=== PATIENT | female | born 1960 | race Caucasian/White ===

== ENCOUNTER 2019-09-08 08:15 | Inpatient (IN) ==
--- NOTE | 2019-08-25 16:40 | PAT Medication Instructions ---
Medication Instructions Date of Service August 25, 2019 Home Medications aspirin 81 mg PO QAM cyanocobalamin (vitamin B-12) [Vitamin B-12] 1,000 mcg PO QAM diclofenac sodium 2 g TOPICAL QAM folic acid 800 mcg PO QAM omega 7-szd-xbx-fish oil [Fish Oil] 1 cap PO BID pyridoxine (vitamin B6) [Vitamin B-6] 100 mg PO QAM STOP taking 2 weeks before surgery (or as soon as possible if surgery is within 2 weeks) omega 4-psi-xdd-fish oil [Fish Oil] 1 cap PO BID STOP taking 24 hours before surgery diclofenac sodium 2 g TOPICAL QAM DO NOT take the morning of surgery cyanocobalamin (vitamin B-12) [Vitamin B-12] 1,000 mcg PO QAM folic acid 800 mcg PO QAM pyridoxine (vitamin B6) [Vitamin B-6] 100 mg PO QAM Other Notes If you have any questions please call us at [phone] or [phone] or [phone] or [phone]
--- NOTE | 2019-08-26 12:57 | Anesthesiology Consultation ---
Date of Service August 26, 2019 Assessment & Plan (1) Encounter for pre-operative examination: - Awaiting review preop testing (labs, EKG, CXR). - Awaiting surgeon-ordered PCP preop evaluation scheduled 08/30 (Dr. Kay). Chart Review Chart Review: Patient seen in Pre Admission Testing Teaching & Discussion Pre-Anesthesia Teaching/Discussion Notes: Instructed NPO after midnight before surgery,except medications with 15 cc of water. Medication instructions provided according to the PAT guidelines. History Surgery Operation Date: 09/08/19 10:00 Proposed Procedures p Left Total Knee Arthroplasty - rGant Stubbs MD Height/Weight Height: 5 ft 7 in Weight: 110.8 kg Allergies Allergy/AdvReac Type Severity Reaction Status Date / Time No Known Allergies Allergy Verified 08/24/19 09:16 Medications Home Medications Medication Instructions Recorded Confirmed Last Taken aspirin 81 mg PO QAM 08/24/19 08/24/19 Unknown cyanocobalamin (vitamin B-12) 1,000 mcg PO QAM 08/24/19 08/24/19 Unknown [Vitamin B-12] diclofenac sodium 2 g TOPICAL QAM 08/24/19 08/24/19 Unknown folic acid 800 mcg PO QAM 08/24/19 08/24/19 Unknown omega 0-ghs-deu-fish oil [Fish Oil] 1 cap PO BID 08/24/19 08/24/19 Unknown pyridoxine (vitamin B6) [Vitamin 100 mg PO QAM 08/24/19 08/24/19 Unknown B-6] Past Medical History Medical History DVT (deep venous thrombosis) LLE (2+ years ago)- AC x 6 months (AC discontinued 2 years ago) Hyperlipidemia Exercise / Class Metabolic Activity III < 4 Walking/Shop/Light housework (uses cane PRN) Past Surgical History Surgical History History of open reduction and internal fixation (ORIF) procedure LEFT HIP AND HARDWARE REMOVED History of tonsillectomy and adenoidectomy Hx of arthroscopy of left knee Hx of colonoscopy Hx of laparoscopy REMOVED LEFT OVARY DUE TO CYST Hx of left knee surgery KNEE CAP SURGERY Hx of tubal ligation Past Anesthesia History No Hx of Anesthesia Complications and No Family Hx of Anesthesia Complications History of PONV No Hx of PONV and Hx of Motion Sickness (remote hx) Social History Smoking Status: Never smoker Do You Dip or Chew Tobacco: No Hx Alcohol Use: Yes Alcohol type: beer and wine alcohol intake frequency: holidays/special occasions only Hx Substance Use: No substance use type: does not use Review of Systems Patient denies chest pain, shortness of breath, reflux, cough, wheezing, palpitations. Physical Exam Vital Signs VITALS BP 143/85 (Patient advised to followup with PCP regarding elevated BP) P 58 TEMP 98.2 SP02 94%RA RESP 18 PHYSICAL Full neck and c-spine range of motion. Full TMJ range of motion. TMD 3.5 finger breaths Mallampati Score 2 Dentition: missing sides/molars Lungs: clear throughout to auscultation Cardiac: regular rate and rhythm, no murmurs noted Spine: normal Carotid arteries: negative bruit Extremities: no edema Thick neck
--- NOTE | 2019-08-26 13:53 | XRay Report ---
XR chest Pre-admission PA/Lat HISTORY: 59 years-old Female PAT preoperative exam. No acute chest complaints COMPARISON: None available TECHNIQUE: PA and lateral views of the chest FINDINGS: Cardiac silhouette is mildly enlarged. No pneumothorax, pleural effusion, focal airspace consolidatio n or overt pulmonary edema. Degenerative changes of the shoulders and spine. IMPRESSION: Cardiomegaly without acute process. The above report was generated using voice recognition software. It may contain grammatical, syntax o r spelling errors. Electronically signed by: Pablo Barbosa M.D. 08/26/2019 1:52 PM
[2019-08-26 15:32] LABS: Basophils # (auto) 0.05 K/uL (0-0.2); Basophils % (auto) 0.7 %; Eosinophils % (auto) 1.3 %; Hematocrit (blood only) 42.2 % (37-47); Immature Granulocytes # (auto) 0.02 K/uL (0.00-0.02); Immature Granulocytes % (auto) 0.3 %; Lymphocytes # (auto) 2.09 K/uL (1.2-3.4); Lymphocytes % (auto) 27.8 %; Mean Corpuscular Hemoglobin 30.2 pg (25-34); Mean Corpuscular Hgb Conc 33.2 g/dL (32-36); Mean Corpuscular Volume 90.9 fL (80-100); Monocytes # (auto) 0.68 K/uL (0.11-0.59); Monocytes % (auto) 9.1 %; Neutrophils # (auto) 4.57 K/uL (1.4-6.5); Neutrophils % (auto) 60.8 %; Platelet Count 175 K/uL (130-400); RDW Coefficient of Variation 13.9 % (11.5-14.5); RDW Standard Deviation 46.1 fL (36.4-46.3); Red Blood Count 4.64 M/uL (4.2-5.4); White Blood Count 7.51 K/uL (4.8-10.8)
[2019-08-26 16:03] LABS: Partial Thromboplastin Time 25.9 Seconds (21.0-31.0); Prothrombin Time 10.3 Seconds (9.0-12.0)
[2019-08-26 16:15] LABS: Appearance Urine Clear (Clear); Bilirubin Urine Negative (Negative); Blood Urine Negative (Negative); Color Urine Yellow; Glucose Urine UA Negative (Negative); Ketones Urine Negative (Negative); Leukocyte Esterase Urine Negative (Negative); Nitrite Urine Negative (Negative); Protein Urine Negative (Negative); Specific Gravity Urine 1.015 (1.000-1.030); Urobilinogen Urine Negative (Negative)
[2019-08-26 16:36] LABS: Albumin Level 3.5 gm/dl (3.4-5.0); BUN Creatinine Ratio 19.7 (10-20); Creatinine Clr Calc Pharmacy 106.3 ml/min; Est GFR (African American) 103.5; Est GFR (Non-African American) 89.3; Potassium 4.2 mmol/L (3.5-5.1)
[2019-08-27 07:04] LABS: Estimated Average Glucose 108 mg/dl; Hemoglobin A1C 5.4 % (4.5-5.6)
--- NOTE | 2019-09-02 11:19 | History & Physical Report ---
Date of Service September 02, 2019 Assessment & Plan (1) Primary osteoarthritis of left knee: Patient has severe osteoarthritic change of her left knee. She has failed conservative measures as above. Treatment options were discussed. Risks, benefits and alternatives to surgery including but not limited to infection, DVT, pain, stiffness, need for revision surgery, damage to blood vessels, damage to nerves, PE, , were discussed with the patient and they wish to proceed. Plan will be for left total knee arthroplasty. Will plan on Xarelto for DVT prophylaxis given her history of DVT. Will plan on home health PT upon discharge. Surgery scheduled for 09/08/19 at [facility]. All questions answered. She will follow up post operatively. History of Present Illness Primary Care Provider: Kenya Marcos DO 59 year old female with PMHx significant for high cholesterol and history of DVT in left leg presents with ongoing left knee pain. It is starting to affect her daily activities and is unable to do the things she would like to do. She has failed conservative measures including injections and antiinflammatories. She would like to proceed with left knee replacement. Patient denies headaches, sweats, fevers, chills, double vision, blurred vision, cough, sore throat, dysphagia, chest pain, sob, wheezing, n/v/d/c, numbness, tingling, fatigue, urinary symptoms, mood disorders. ROS positive for bilateral pain and stiffness. Allergies Allergy/AdvReac Type Severity Reaction Status Date / Time No Known Allergies Allergy Verified 08/24/19 09:16 Home Medications Home Medications Medication Instructions Recorded Confirmed Type aspirin 81 mg PO QAM 08/24/19 08/24/19 History cyanocobalamin (vitamin B-12) 1,000 mcg PO QAM 08/24/19 08/24/19 History [Vitamin B-12] diclofenac sodium 2 g TOPICAL QAM 08/24/19 08/24/19 History folic acid 800 mcg PO QAM 08/24/19 08/24/19 History omega 5-hjz-bts-fish oil [Fish Oil] 1 cap PO BID 08/24/19 08/24/19 History pyridoxine (vitamin B6) [Vitamin 100 mg PO QAM 08/24/19 08/24/19 History B-6] Past Med/Surg History Medical History DVT (deep venous thrombosis) LLE (2+ years ago)- AC x 6 months (AC discontinued 2 years ago) Hyperlipidemia Surgical History History of open reduction and internal fixation (ORIF) procedure LEFT HIP AND HARDWARE REMOVED History of tonsillectomy and adenoidectomy Hx of arthroscopy of left knee Hx of colonoscopy Hx of laparoscopy REMOVED LEFT OVARY DUE TO CYST Hx of left knee surgery KNEE CAP SURGERY Hx of tubal ligation Social History Preferred Language: Malay Communication Ability: Effective 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 Beliefs That Will Affect Care: None Current Living Situation: Spouse Other Information That Helps Us Care for You: No Feels Safe at Home: Yes Safety Concerns: Feels Safe At This Time Smoking Status: Never smoker Do You Dip or Chew Tobacco: No ; Second Hand Exposure: No ; Tobacco Cessation Education Requested by Patient: No Hx Alcohol Use: Yes Alcohol type: beer and wine Hx Substance Use: No Review of Systems All systems reviewed & are unremarkable except as noted in HPI & below Physical Exam Constitutional: well developed and well nourished; no acute distress Eyes: PERRL, conjunctivae normal, anicteric sclerae ENMT: external ear and nose normal, oropharynx normal Neck: trachea midline, no thyromegaly Respiratory: normal respiratory effort, lungs clear to auscultation Cardiovascular: RRR, no murmur, no edema Musculoskeletal: Lef tknee: ROM 5-100 degrees with crepitus. Tenderness medial joint line, mild effusion. Positive Triston's, stable to valgus and varus stress Skin: no rashes, warm and dry Neurologic: patellar DTR's 2+ bilat, sensation intact Psychiatric: A+Ox3, euthymic affect Results & Data Laboratory Results Lab Results 08/26/19 08/26/19 08/26/19 Range/Units 13:22 13:22 13:22 WBC 7.51 (4.8-10.8) K/uL RBC 4.64 (4.2-5.4) M/uL Hgb 14.0 (12.0-16.0) g/dL Hct 42.2 (37-47) % MCV 90.9 (80-100) fL MCH 30.2 (25-34) pg MCHC 33.2 (32-36) g/dL RDW Std Deviation 46.1 (36.4-46.3) fL RDW Coeff of Jeffry 13.9 (11.5-14.5) % Plt Count 175 (130-400) K/uL MPV 11.0 H (7.4-10.4) fL Immature Gran % (Auto) 0.3 % Neut % (Auto) 60.8 % Lymph % (Auto) 27.8 % [place]ham % (Auto) 9.1 % Eos % (Auto) 1.3 % Baso % (Auto) 0.7 % Immature Gran # (Auto) 0.02 (0.00-0.02) K/uL Neut # (Auto) 4.57 (1.4-6.5) K/uL Lymph # (Auto) 2.09 (1.2-3.4) K/uL Windham # (Auto) 0.68 H (0.11-0.59) K/uL Eos # (Auto) 0.10 (0-0.5) K/uL Baso # (Auto) 0.05 (0-0.2) K/uL PT 10.3 (9.0-12.0) Seconds INR 1.0 (0.9-1.1) APTT 25.9 (21.0-31.0) Seconds PTT Ratio 1.0 Sodium 139 (136-145) mmol/L Potassium 4.2 (3.5-5.1) mmol/L Chloride 107 (98-107) mmol/L Carbon Dioxide 27 (21-32) mmol/L Anion Gap 5.0 (3-11) BUN 15 (7-18) mg/dl Creatinine 0.74 (0.6-1.2) mg/dl Est Cr Clr Drug Dosing 106.3 ml/min Est GFR ( Amer) 103.5 Est GFR (Non-Af Amer) 89.3 BUN/Creatinine Ratio 19.7 (10-20) Glucose 87 (70-99) mg/dl Estimat Average Glucose mg/dl Hemoglobin A1c (4.5-5.6) % Calcium 9.0 (8.5-10.1) mg/dl Albumin 3.5 (3.4-5.0) gm/dl Urine Color Urine Appearance (Clear) Urine pH (4.5-7.5) Ur Specific Parks (1.000-1.030) Urine Protein (Negative) Urine Glucose (UA) (Negative) Urine Ketones (Negative) Urine Blood (Negative) Urine Nitrite (Negative) Urine Bilirubin (Negative) Urine Urobilinogen (Negative) Ur Leukocyte Esterase (Negative) Blood Type Antibody Screen 08/26/19 08/26/19 08/26/19 Range/Units 13:22 13:22 13:22 WBC (4.8-10.8) K/uL RBC (4.2-5.4) M/uL Hgb (12.0-16.0) g/dL Hct (37-47) % MCV (80-100) fL MCH (25-34) pg MCHC (32-36) g/dL RDW Std Deviation (36.4-46.3) fL RDW Coeff of Jeffry (11.5-14.5) % Plt Count (130-400) K/uL MPV (7.4-10.4) fL Immature Gran % (Auto) % Neut % (Auto) % Lymph % (Auto) % [place] % (Auto) % Eos % (Auto) % Baso % (Auto) % Immature Gran # (Auto) (0.00-0.02) K/uL Neut # (Auto) (1.4-6.5) K/uL Lymph # (Auto) (1.2-3.4) K/uL Windham # (Auto) (0.11-0.59) K/uL Eos # (Auto) (0-0.5) K/uL Baso # (Auto) (0-0.2) K/uL PT (9.0-12.0) Seconds INR (0.9-1.1) APTT (21.0-31.0) Seconds PTT Ratio Sodium (136-145) mmol/L Potassium (3.5-5.1) mmol/L Chloride (98-107) mmol/L Carbon Dioxide (21-32) mmol/L Anion Gap (3-11) BUN (7-18) mg/dl Creatinine (0.6-1.2) mg/dl Est Cr Clr Drug Dosing ml/min Est GFR ( Amer) Est GFR (Non-Af Amer) BUN/Creatinine Ratio (10-20) Glucose (70-99) mg/dl Estimat Average Glucose 108 mg/dl Hemoglobin A1c 5.4 (4.5-5.6) % Calcium (8.5-10.1) mg/dl Albumin (3.4-5.0) gm/dl Urine Color Yellow Urine Appearance Clear (Clear) Urine pH 7.0 (4.5-7.5) Ur Specific Parks 1.015 (1.000-1.030) Urine Protein Negative (Negative) Urine Glucose (UA) Negative (Negative) Urine Ketones Negative (Negative) Urine Blood Negative (Negative) Urine Nitrite Negative (Negative) Urine Bilirubin Negative (Negative) Urine Urobilinogen Negative (Negative) Ur Leukocyte Esterase Negative (Negative) Blood Type O Positive Antibody Screen NEGATIVE Diagnostic Findings Left knee radiographs: Severe tricompartmental osteoarthritic change, bone on bone PF joint with periarticular osteophyte formation.
[~2019-09-08 08:15] MED LIST: ACETAMINOPHEN 500 MG TAB PO SCH; BUPIVACAINE 0.5 % 5 MG/1 ML PF 10ML VIAL ONE; BUPIVACAINE/EPINEPHRINE 0.25% 1:200,000 30 ML VIAL ONE; CEFAZOLIN 2000MG 2,000 MG/15 ML SYR IV SCH; CeleBREX 200 MG CAP PO SCH; FAMOTIDINE 20 MG TAB PO SCH; LR 500ML BOLUS, THEN 15ML/HR IV SCH; METOCLOPRAMIDE HCL 10 MG TABLET PO SCH; ROPIVACAINE 0.5% HCL/PF 150 MG, BUPIVACAINE 0.5% MPF 30 ML, EPINEPHrine 30MG/30ML (OR U... INSTIL SCH; TRANEXAMIC ACID 1,000 MG **IV Intra-op IV SCH; TRANEXAMIC ACID 1,000 MG **IV Pre-op IV SCH; dexAMETHasone 4 MG TAB PO SCH
[2019-09-08] MEDS ORDERED: fentaNYL citrate 100 MCG/2 ML VIAL ONE (09:26)
[2019-09-08] MEDS ORDERED: MIDAZOLAM HCL 1 MG/ML 2ML VIAL ONE ×3 (09:26→10:53)
[2019-09-08] MEDS ORDERED: PROPOFOL IV EMULSION 10 MG/ML 20 ML VIAL IV ONE ×6 (09:28→13:07)
[2019-09-08] MEDS ORDERED: ONDANSETRON INJ 2 MG/ML 2 ML VIAL ONE (09:28)
[2019-09-08] MEDS ORDERED: LIDOCAINE HCL 2% 2 ML VIAL/AMP(20MG/ML) INFIL ONE (09:28)
[2019-09-08] MEDS ORDERED: ATROPINE SULFATE 0.1 MG/ML 10ML SYR IV PRN (10:04)
[2019-09-08] MEDS ORDERED: ePHEDrine sulfate 50 MG/ML AMP IV PRN (10:04)
[2019-09-08] MEDS ORDERED: fentaNYL citrate 100 MCG/2 ML VIAL IV PRN (10:04)
[2019-09-08] MEDS ORDERED: HYDROmorphone INJ 1 MG/ML SYRINGE IV PRN (10:04)
[2019-09-08] MEDS ORDERED: ONDANSETRON INJ 2 MG/ML 2 ML VIAL IV PRN ×2 (10:04→14:51)
[2019-09-08] MEDS ORDERED: ORTHO JOINT ANESTHETIC ONE (10:28)
[2019-09-08] MEDS ORDERED: BACITRACIN INJ 50,000 UNIT VIAL ONE (10:28)
--- NOTE | 2019-09-08 10:29 | History & Physical Bridge Note ---
Date of Service September 08, 2019 History & Physical Bridge Note I have examined the patient, reviewed the History & Physical and in the interval since the performance of the History & Physical I have noted the following changes of clinical significance: no changes noted
--- NOTE | 2019-09-08 13:01 | Operative Report ---
Post Operative Report Pre & Post Diagnosis Operation Date: 09/08/19 11:00 Pre-Op Diagnosis: Unilateral Primary Osteoarthritis, Left Knee Post-Op Diagnosis: Unilateral Primary Osteoarthritis, Left Knee I identified the patient and participated in the time-out.: Yes Procedure Operation Date: 09/08/19 11:00 Actual Procedures p Left Total Knee Arthroplasty(Left) - Grant Stubbs MD Surgeon Grant Stubbs MD Crop Or Livestock Tenant Farmer Luis Poe PA-C Estimated Blood Loss 20 Findings Consistent with Post-Op Diagnosis Specimens bone and tissue Drains 2 drains Anesthesia Type Spinal MAC Complications none Disposition Accompanied Patient To Recovery: No Disposition: Recovery Room Indications Patient is a 59-year-old female who previously undergone several surgeries on left knee. She undergone open meniscectomy as well as open reduction internal fixation of a patella fracture. She subsequently underwent removal of hardware of that ORIF of the patella hardware. She has fairly severe arthritis in all 3 compartments [id number] particular the patellofemoral compartment and the lateral compartment. She has failed conservative measures including injection, anti-inflammatories and rehab. She wishes to proceed with left total knee arthroplasty. Description of Procedure Risks benefits and alternatives of surgery including but not limited to infection, DVT, pain, stiffness, need for surgery, damage to blood vessels, damage to nerves or risks of anesthesia were discussed with the patient and they wished to proceed. The patient was identified and the laterality was confirmed and marked. They received a preoperative antibiotic as well as a spinal anesthetic and an abductor canal block. A well-padded tourniquet was applied and then the limb was prepped and draped in standard manner with ChloraPrep. The limb was exsanguinated and the tourniquet was inflated. I made a standard anterior incision. I sharply incised the skin then utilized Bovie electrocautery to achieve hemostasis. I made a medial parapatellar arthrotomy and mobilized the patella laterally. I then excised the anterior horns of the medial and lateral meniscus as well as the infrapatellar fat pad. I elevated a portion of the MCL off of the tibia. There was a significant amount of scar that was excised particularly laterally. I then pinned into place a patient-matched distal femoral cutting guide and made my distal femoral resection. I took an additional 2 mm of distal femur secondary to her preoperative flexion contracture. I then pinned into place the 5 in 1 femoral cutting guide. I made my anterior, posterior and chamfer cuts. I then excised the cruciates and the remaining portions of the menisci. I then pinned into place a patient- matched tibial cutting guide and made my tibial resection. I checked the tibial resection and the cut appeared to be in valgus. I made a recut using a varus valgus guide but is was still in valgus. Therefore put the external tibial cutting guide into position and made a revision cut. I then checked varus valgus once again and we had good alignment after this recut. I then pinned into place the tibial plate a utilizing alignment emeterio to confirm rotation. I then cut for the post. Utilizing a lamina security operations analyst and I then removed posterior osteophytes off the femur. I then placed a trial femur into position and cut for the trochlear component. I then sequentially trialed to size the polyethylene until there was good soft tissue balancing and range of motion. I then prepared the patella with a freehand cut utilizing sagittal saw. I sized and drilled for the patella. There was lateral tracking the patella and the lateral release was required. All the trial components were removed. The deep tissues were anesthetized with an ortho mix solution. Then with Simplex HV with gentamicin cement, I cemented my definitive components. Definitive components, Cheek and Nephew Journey 2: Femur 8 Tibia 6 Poly 9 Patella 35 oval A betadine soak was performed. A deep drain was placed. The arthrotomy was closed with interrupted #1 Vicryl suture subcutaneous tissue was closed with interrupted 2-0 Vicryl suture. The skin was closed with with oscar. An Acticoat and Zeeshan dressing were placed. Sterile dressings were applied. All needle and sponge counts were correct at the end of the procedure patient was transferred to the PACU in stable condition without apparent complication. The PA-C was necessary for assistance with procedure for assistance in positioning, prepping, draping, retraction and closure. I attest to the content of the Intraoperative Record and any orders documented therein. Any exceptions are noted below.
--- NOTE | 2019-09-08 14:20 | XRay Report ---
XR knee LT 1 or 2V routine CLINICAL HISTORY: Surgical Post Op COMPARISON: None. DISCUSSION: There are postsurgical changes of a total left knee arthroplasty and patellar resurfacing . Overlying skin oscar and surgical drains are evident. The femoral tibial components appear well s eated. There is gas within the soft tissues consistent with recent surgery. IMPRESSION: Postsurgical changes of a total left knee arthroplasty. Electronically signed by: Joey Mireles M.D. 09/08/2019 2:19 PM
--- NOTE | 2019-09-08 14:21 | Anesthesiology Progress Note ---
Date of Service September 08, 2019 Anesthesia Post Procedure Vital Signs Vital Signs: Temp Pulse Pulse Resp BP Pulse Ox 09/08/19 14:20 36.6 C 62 15 119/72 96 09/08/19 14:10 36.4 C L 62 15 127/73 96 09/08/19 14:00 36.4 C L 60 13 127/73 100 09/08/19 13:50 36.4 C L 67 14 118/68 100 09/08/19 13:42 36.4 C L 71 15 108/69 97 09/08/19 09:33 36.8 C 69 18 171/83 H 98 Pain Intensity Left Knee: Pain Intensity: 4 Transfer of Care Handoff Completed per policy Notes Mental Status: alert / awake / arousable and participated in evaluation Patient Amnestic to Procedure: Yes Nausea / Vomiting: adequately controlled Pain: adequately controlled Airway Patency, RR, SpO2: stable & adequate BP & HR: stable & adequate Hydration State: stable & adequate Anesthetic Complications: no major complications apparent and Pt Satisfied with anesthetic care
[2019-09-08] MEDS: SODIUM CHLORIDE 0.9% 1000ML 1,000 ML IV SCH (14:45)
[2019-09-08] MEDS ORDERED: MAGNESIUM HYDROXIDE SUSP 30 ML UDC PO PRN (14:51)
[2019-09-08] MEDS ORDERED: NALOXONE HCL 0.4 MG/1 ML VIAL/CARP IV PRN (14:51)
[2019-09-08] MEDS ORDERED: HYDROmorphone INJ 0.5 MG/0.5 ML SYR IV PRN (14:51)
[2019-09-08] MEDS ORDERED: BISACODYL 10 MG SUPP PR PRN (14:51)
[2019-09-08] MEDS ORDERED: METOCLOPRAMIDE HCL INJ 5 MG/ML 2 ML VIAL IV PRN (14:51)
[2019-09-08] MEDS: ACETAMINOPHEN 500 MG TAB PO SCH ×2 (16:12→21:16)
[2019-09-08] MEDS: CEFAZOLIN 2000MG 2,000 MG/15 ML SYR IV SCH (18:58)
[2019-09-08] MEDS ORDERED: SENNA 8.6 MG TAB PO SCH (21:00)
[2019-09-08] MEDS: DOCUSATE SODIUM 100 MG CAP PO SCH (21:16)
[2019-09-08] MEDS: OMEGA-3 (PURIFIED FISH OIL) 1 GM CAP PO SCH (21:16)
[2019-09-09] MEDS: SODIUM CHLORIDE 0.9% 1000ML 1,000 ML IV SCH (01:18)
[2019-09-09] MEDS: CEFAZOLIN 2000MG 2,000 MG/15 ML SYR IV SCH (01:27)
[2019-09-09 05:39] LABS: Hematocrit (blood only) 33.3 % (37-47); Hemoglobin 11.1 g/dL (12.0-16.0); Mean Corpuscular Hemoglobin 30.1 pg (25-34); Mean Corpuscular Hgb Conc 33.3 g/dL (32-36); Mean Corpuscular Volume 90.2 fL (80-100); Mean Platelet Volume 10.6 fL (7.4-10.4); Platelet Count 162 K/uL (130-400); RDW Coefficient of Variation 13.5 % (11.5-14.5); RDW Standard Deviation 44.8 fL (36.4-46.3); Red Blood Count 3.69 M/uL (4.2-5.4); White Blood Count 15.34 K/uL (4.8-10.8)
[2019-09-09] MEDS: ACETAMINOPHEN 500 MG TAB PO SCH (05:56)
[2019-09-09 06:12] LABS: BUN Creatinine Ratio 25.7 (10-20); Calcium 8.4 mg/dl (8.5-10.1); Creatinine Clr Calc Pharmacy 90.6 ml/min; Est GFR (African American) 86.3; Est GFR (Non-African American) 74.5; Potassium 4.5 mmol/L (3.5-5.1)
--- NOTE | 2019-09-09 07:35 | Orthopedic Progress Note ---
Date of Service September 09, 2019 Assessment & Plan (1) Primary osteoarthritis of left knee: POD#1 Left TKA -PT/OT -Pain management -DVT prophylaxis-Xarelto 10mg daily x 1 month -AM labs-hemoglobin 11.1 this am. Acute blood loss anemia likely due to surgical loss vs dilutional effect -D/C planning-planning on HH PT upon discharge. Discharge possibly later today if pain controlled and PT goes well. Depending on drainage later today will leave drain in if HH can remove tomorrow. Will recheck her later today. Subjective Patient is POD#1 left TKA. Mild amount of pain this morning but controlled. No other complaints at this time. Denies chest pain, sob, dizziness, n/v/d. Review of Systems Review of Systems: All systems reviewed & are unremarkable except as noted in HPI & below Physical Exam Physical Exam: Left leg dressing is c/d/i, Zeeshan in place, hemovac draining. No calf tenderness. Toes mobile. Good dorsiflexion. Distally n/v status and sensation intact. Constitutional: well developed and well nourished; no acute distress Results & Data Vital Signs (Past 12 Hours) Vital Signs Temp Pulse Resp BP Pulse Ox 09/09/19 03:20 36.8 C 70 18 95/53 L 98 09/08/19 23:00 36.8 C 67 18 113/69 97 09/08/19 19:41 36.7 C 80 18 131/71 97 Laboratory Results H & H 08/26/19 09/09/19 Range/Units 13:22 04:55 Hgb 14.0 11.1 L (12.0-16.0) g/dL Hct 42.2 33.3 L (37-47) % Coagulation 08/26/19 Range/Units 13:22 INR 1.0 (0.9-1.1)
--- NOTE | 2019-09-09 07:55 | Anesthesiology Progress Note ---
Date of Service September 09, 2019 Anesthesia Post Procedure Vital Signs Vital Signs: Temp Pulse Pulse Resp BP Pulse Ox 09/09/19 03:20 36.8 C 70 18 95/53 L 98 09/08/19 23:00 36.8 C 67 18 113/69 97 09/08/19 19:41 36.7 C 80 18 131/71 97 09/08/19 17:51 37.1 C 67 18 133/84 94 09/08/19 16:37 36.5 C 72 18 133/81 99 09/08/19 15:43 36.4 C L 58 L 18 128/80 99 09/08/19 15:20 36.4 C L 60 18 131/84 98 09/08/19 14:35 36.6 C 60 16 127/79 97 09/08/19 14:20 36.6 C 62 15 119/72 96 09/08/19 14:10 36.4 C L 62 15 127/73 96 09/08/19 14:00 36.4 C L 60 13 127/73 100 09/08/19 13:50 36.4 C L 67 14 118/68 100 09/08/19 13:42 36.4 C L 71 15 108/69 97 09/08/19 09:33 36.8 C 69 18 171/83 H 98 Pain Intensity Left Knee: Pain Intensity: 5 Notes Mental Status: alert / awake / arousable and participated in evaluation Patient Amnestic to Procedure: Yes Nausea / Vomiting: adequately controlled Pain: adequately controlled Airway Patency, RR, SpO2: stable & adequate BP & HR: stable & adequate Hydration State: stable & adequate Neuraxial Anesthesia: was administered and sensory block resolved Anesthetic Complications: no major complications apparent and Pt Satisfied with anesthetic care
[2019-09-09] MEDS: OMEGA-3 (PURIFIED FISH OIL) 1 GM CAP PO SCH (08:21)
[2019-09-09] MEDS: OXYCODONE HCL IR 5 MG TAB (IMMEDIATE RELEASE) PO PRN ×2 (08:21→11:53)
[2019-09-09] MEDS: DOCUSATE SODIUM 100 MG CAP PO SCH (08:22)
[2019-09-09] MEDS ORDERED: DICLOFENAC SOD 1% GEL 100 GM TUBE EXT SCH (09:00)
[2019-09-09] MEDS ORDERED: RIVAROXABAN 10 MG TABLET PO SCH (09:00)
[2019-09-09] MEDS ORDERED: PYRIDOXINE HCL 50 MG TAB PO SCH (09:00)
[2019-09-09] MEDS ORDERED: MULTIVITAMIN TAB PO SCH (09:00)
[2019-09-09] MEDS ORDERED: CYANOCOBALAMIN 500 MCG TABLET (VITAMIN B-12) PO SCH (09:00)
[2019-09-09] MEDS ORDERED: FOLIC ACID 400 MCG TAB PO SCH (09:00)
--- NOTE | 2019-09-09 21:48 | Discharge Summary ---
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 It is starting to affect her daily activities and is unable to do the things she would like to do. She has failed conservative measures including injections and antiinflammatories. She would like to proceed with left knee replacement. Patient denies headaches, sweats, fevers, chills, double vision, blurred vision, cough, sore throat, dysphagia, chest pain, sob, wheezing, n/v/d/c, numbness, tingling, fatigue, urinary symptoms, mood disorders. ROS positive for bilateral pain and stiffness. Admission Exam Per Admitting Provider Constitutional: well developed and well nourished; no acute distress Eyes: PERRL, conjunctivae normal, anicteric sclerae ENMT: external ear and nose normal, oropharynx normal Neck: trachea midline, no thyromegaly Respiratory: normal respiratory effort, lungs clear to auscultation Cardiovascular: RRR, no murmur, no edema Musculoskeletal: Lef tknee: ROM 5-100 degrees with crepitus. Tenderness medial joint line, mild effusion. Positive Triston's, stable to valgus and varus stress Skin: no rashes, warm and dry Neurologic: patellar DTR's 2+ bilat, sensation intact Psychiatric: A+Ox3, euthymic affect Principal Diagnosis Left knee osteoarthritis Discharge Exam Constitutional well developed and well nourished; no acute distress Eyes PERRL, conjunctivae normal, anicteric sclerae ENMT external ear and nose normal, oropharynx normal Neck trachea midline, no thyromegaly Respiratory normal respiratory effort, lungs clear to auscultation Cardiovascular RRR, no murmur, no edema Skin no rashes, warm and dry Neurologic patellar DTR's 2+ bilat, sensation intact Psychiatric A+Ox3, euthymic affect Discharge Data Allergies Allergy/AdvReac Type Severity Reaction Status Date / Time No Known Allergies Allergy Verified 09/08/19 09:02 Consultations 09/08/19 14:51 Consult Case Management - Discharge Planning Routine Procedures Performed Operation Date: 09/08/19 11:00 Actual Procedures p Left Total Knee Arthroplasty(Left) - Grant Stubbs MD Ordered Studies 09/08/19 05:00 US - OR guided needle placemen Routine Hospital Course (1) Primary osteoarthritis of left knee: Patient presented for same day admission following left total knee arthroplasty on 09/08/19. She tolerated procedure well. The Patient had an uneventful hospital course. Post-operatively,her activity was progressed and well tolerated. They participated in PT with ambulation distance of 225 feet. ROM of operative knee reached 75 degrees. Labs remained stable- lowest hemoglobin recorded:11.1. Pain controlled on oral medications. Please refer to daily progress notes and PT notes for complete details. After exam on 09/09/19, patient was felt to be stable for discharge home with home health physical therapy. Due to amount of output in hemovac drain, will keep drain in place for home health to remove on POD#2. Patient will f/u in the office in about 2 weeks for further evaluation including x-rays and incision check, sooner if having any issues or concerns. Lab Results 08/26/19 08/26/19 08/26/19 Range/Units 13:22 13:22 13:22 WBC 7.51 (4.8-10.8) K/uL RBC 4.64 (4.2-5.4) M/uL Hgb 14.0 (12.0-16.0) g/dL Hct 42.2 (37-47) % MCV 90.9 (80-100) fL MCH 30.2 (25-34) pg MCHC 33.2 (32-36) g/dL RDW Std Deviation 46.1 (36.4-46.3) fL RDW Coeff of Jeffry 13.9 (11.5-14.5) % Plt Count 175 (130-400) K/uL MPV 11.0 H (7.4-10.4) fL Immature Gran % (Auto) 0.3 % Neut % (Auto) 60.8 % Lymph % (Auto) 27.8 % Bath % (Auto) 9.1 % Eos % (Auto) 1.3 % Baso % (Auto) 0.7 % Immature Gran # (Auto) 0.02 (0.00-0.02) K/uL Neut # (Auto) 4.57 (1.4-6.5) K/uL Lymph # (Auto) 2.09 (1.2-3.4) K/uL Bath # (Auto) 0.68 H (0.11-0.59) K/uL Eos # (Auto) 0.10 (0-0.5) K/uL Baso # (Auto) 0.05 (0-0.2) K/uL PT 10.3 (9.0-12.0) Seconds INR 1.0 (0.9-1.1) APTT 25.9 (21.0-31.0) Seconds PTT Ratio 1.0 Sodium 139 (136-145) mmol/L Potassium 4.2 (3.5-5.1) mmol/L Chloride 107 (98-107) mmol/L Carbon Dioxide 27 (21-32) mmol/L Anion Gap 5.0 (3-11) BUN 15 (7-18) mg/dl Creatinine 0.74 (0.6-1.2) mg/dl Est Cr Clr Drug Dosing 106.3 ml/min Est GFR ( Amer) 103.5 Est GFR (Non-Af Amer) 89.3 BUN/Creatinine Ratio 19.7 (10-20) Glucose 87 (70-99) mg/dl Estimat Average Glucose mg/dl Hemoglobin A1c (4.5-5.6) % Calcium 9.0 (8.5-10.1) mg/dl Albumin 3.5 (3.4-5.0) gm/dl Urine Color Urine Appearance (Clear) Urine pH (4.5-7.5) Ur Specific [place] (1.000-1.030) Urine Protein (Negative) Urine Glucose (UA) (Negative) Urine Ketones (Negative) Urine Blood (Negative) Urine Nitrite (Negative) Urine Bilirubin (Negative) Urine Urobilinogen (Negative) Ur Leukocyte Esterase (Negative) Hepatitis C Ab Screen (Neg) Blood Type Antibody Screen 08/26/19 08/26/19 08/26/19 Range/Units 13:22 13:22 13:22 WBC (4.8-10.8) K/uL RBC (4.2-5.4) M/uL Hgb (12.0-16.0) g/dL Hct (37-47) % MCV (80-100) fL MCH (25-34) pg MCHC (32-36) g/dL RDW Std Deviation (36.4-46.3) fL RDW Coeff of Jeffry (11.5-14.5) % Plt Count (130-400) K/uL MPV (7.4-10.4) fL Immature Gran % (Auto) % Neut % (Auto) % Lymph % (Auto) % Bath % (Auto) % Eos % (Auto) % Baso % (Auto) % Immature Gran # (Auto) (0.00-0.02) K/uL Neut # (Auto) (1.4-6.5) K/uL Lymph # (Auto) (1.2-3.4) K/uL Bath # (Auto) (0.11-0.59) K/uL Eos # (Auto) (0-0.5) K/uL Baso # (Auto) (0-0.2) K/uL PT (9.0-12.0) Seconds INR (0.9-1.1) APTT (21.0-31.0) Seconds PTT Ratio Sodium (136-145) mmol/L Potassium (3.5-5.1) mmol/L Chloride (98-107) mmol/L Carbon Dioxide (21-32) mmol/L Anion Gap (3-11) BUN (7-18) mg/dl Creatinine (0.6-1.2) mg/dl Est Cr Clr Drug Dosing ml/min Est GFR ( Amer) Est GFR (Non-Af Amer) BUN/Creatinine Ratio (10-20) Glucose (70-99) mg/dl Estimat Average Glucose 108 mg/dl Hemoglobin A1c 5.4 (4.5-5.6) % Calcium (8.5-10.1) mg/dl Albumin (3.4-5.0) gm/dl Urine Color Yellow Urine Appearance Clear (Clear) Urine pH 7.0 (4.5-7.5) Ur Specific [place] 1.015 (1.000-1.030) Urine Protein Negative (Negative) Urine Glucose (UA) Negative (Negative) Urine Ketones Negative (Negative) Urine Blood Negative (Negative) Urine Nitrite Negative (Negative) Urine Bilirubin Negative (Negative) Urine Urobilinogen Negative (Negative) Ur Leukocyte Esterase Negative (Negative) Hepatitis C Ab Screen (Neg) Blood Type O Positive Antibody Screen NEGATIVE 09/09/19 09/09/19 09/09/19 Range/Units 04:55 04:55 04:55 WBC 15.34 H (4.8-10.8) K/uL RBC 3.69 L (4.2-5.4) M/uL Hgb 11.1 L (12.0-16.0) g/dL Hct 33.3 L (37-47) % MCV 90.2 (80-100) fL MCH 30.1 (25-34) pg MCHC 33.3 (32-36) g/dL RDW Std Deviation 44.8 (36.4-46.3) fL RDW Coeff of Jeffry 13.5 (11.5-14.5) % Plt Count 162 (130-400) K/uL MPV 10.6 H (7.4-10.4) fL Immature Gran % (Auto) % Neut % (Auto) % Lymph % (Auto) % Bath % (Auto) % Eos % (Auto) % Baso % (Auto) % Immature Gran # (Auto) (0.00-0.02) K/uL Neut # (Auto) (1.4-6.5) K/uL Lymph # (Auto) (1.2-3.4) K/uL Bath # (Auto) (0.11-0.59) K/uL Eos # (Auto) (0-0.5) K/uL Baso # (Auto) (0-0.2) K/uL PT (9.0-12.0) Seconds INR (0.9-1.1) APTT (21.0-31.0) Seconds PTT Ratio Sodium 140 (136-145) mmol/L Potassium 4.5 (3.5-5.1) mmol/L Chloride 109 H (98-107) mmol/L Carbon Dioxide 24 (21-32) mmol/L Anion Gap 7.0 (3-11) BUN 22 H (7-18) mg/dl Creatinine 0.86 (0.6-1.2) mg/dl Est Cr Clr Drug Dosing 90.6 ml/min Est GFR ( Amer) 86.3 Est GFR (Non-Af Amer) 74.5 BUN/Creatinine Ratio 25.7 H (10-20) Glucose 132 H (70-99) mg/dl Estimat Average Glucose mg/dl Hemoglobin A1c (4.5-5.6) % Calcium 8.4 L (8.5-10.1) mg/dl Albumin (3.4-5.0) gm/dl Urine Color Urine Appearance (Clear) Urine pH (4.5-7.5) Ur Specific [place] (1.000-1.030) Urine Protein (Negative) Urine Glucose (UA) (Negative) Urine Ketones (Negative) Urine Blood (Negative) Urine Nitrite (Negative) Urine Bilirubin (Negative) Urine Urobilinogen (Negative) Ur Leukocyte Esterase (Negative) Hepatitis C Ab Screen Neg (Neg) Blood Type Antibody Screen Total Time Total Time Spent Total Time Spent (In Minutes): 20 Discharge Plan Discharge Items Patient Disposition: Home - Home Health Services Reason For Visit: Unilateral Primary Osteoarthritis, Left Knee Discharge Diagnosis: Left knee osteoarthritis Activity: Per Instructions section Non-emergency contact: Surgeon Call non-emergency contact if: you have any medication questions, your pain is not controlled, your pain is worsening, your pain is concerning for you, you have a fever, your temperature is above 101, your wound has increased redness and your wound has increased drainage Follow-up/Referrals: Kenya Marcos DO [Primary Care Provider] - Diet: Regular Addtl Attending Provider Instructions: ACTIVITY RECOMMENDATIONS: SELF CARE INSTRUCTIONS AFTER TOTAL KNEE REPLACEMENT A. You may need to continue a physical therapy program after discharge from the hospital. There are several options available to you. Your doctor will assist you in selecting the best one for you. 1. An out-patient facility 2 to 3 times a week for therapy or home therapy. 2. Continue working on all exercises taught to you in the hospital. Your goals should be to increase bending of your knee to 90 degrees and beyond and to fully straighten your knee. B. You may progress at your own pace from walking with a walker or crutches to a cane; then to no assistive devices. C. Make walking a part of your daily routine. Be up as much as comfortable with rest periods throughout the day. Rest with leg elevation is very important. Use the ice wrap frequently for the first 3-4 weeks. D. There are no restrictions on activities. You may ride in a car, shop, participate in cut in worker and all social activities. E. Wear the long elastic stockings (ALAINA hose) 20 hours a day for 2 weeks after surgery. They can be removed several times a day for laundering and for a bath. F. You may shower, no tub baths until cleared by your doctor. SPECIAL CARE INSTRUCTIONS: VERY IMPORTANT TO READ AND REVIEW A. There are a few signs you need to watch for after you are home. Call [facility] if you notice any of the followin. Increased severe knee pain. Some pain is expected especially when you exercise. 2. Increased swelling in your leg or knee; pain or swelling of the calf muscle in either lower leg. 3. Any fluid drainage from the incision. 4. Shortness of breath or chest pain. B. Please call [facility] at if you have any concerns or questions about your operation or recovery. The doctor or his nurse will return your call promptly. C. You must take antibiotics before dental work, bladder, bowel or other surg con. Your doctor will provide you with a permanent care to carry describing this precaution. IMPORTANT: * REMEMBER TO TAKE ASPIRIN, 81 MG, TWICE DAILY FOR 4 WEEKS UNLESS OTHERWISE DIRECTED. THIS IS YOUR BLOOD THINNER. * HIGH RISK PATIENTS MAY BE PRESCRIBED A STRONGER BLOOD THINNER. THIS WILL BE PROVIDED AT DISCHARGE. * YOU HAVE ALSO BEEN SENT A PRESCRIPTION FOR AN ANTIBIOTIC TO TAKE FOR 1 MONTH POST OPERATIVELY PROPHYLAXIS AGAINST INFECTION. * CALL IF INCREASED PAIN, REDNESS, DRAINAGE OR FEVER GREATER THAT 101. * WEAR ALAINA HOSE 20 HOURS PER DAY FOR 2 WEEKS. * This is a large suction dressing covering your incision. This will help pull any excess drainage from the wound and allow your incision to heal properly. You may shower with this if you can keep the unit outside of the shower. If any bleeding or leakage is noted please call your doctor's office. This will remain on your incision for 7 days and then should be removed. This can be done yourself or by the home nursing staff if applicable. The entire unit is disposable once removed. Once removed, keep incision clean and dry. If redness or drainage is noted, please call your surgeon. FOLLOW UP VISIT: If appointment is not already scheduled: Please call [facility] to make a follow-up appointment for 2 weeks after your surgery at . Pending Studies at Discharge: No Stand-Alone Forms: My [employer], Smoking Cessation Medications and DC Order Prescriptions: New oxycodone 5 mg tablet 5 mg PO Q4H MDD 6 PRN (Reason: pain) Qty: 30 RF: 0 acetaminophen [Tylenol Extra Strength] 500 mg Tablet 1,000 mg PO Q8 Qty: 60 RF: 0 Xarelto 10 mg Tablet 10 mg PO DAILY Qty: 30 RF: 0 cefadroxil 500 mg capsule 500 mg PO BID Qty: 60 RF: 0 Continued cyanocobalamin (vitamin B-12) [Vitamin B-12] 1,000 mcg Tablet 1,000 mcg PO QAM RF: 0 pyridoxine (vitamin B6) [Vitamin B-6] 100 mg Tablet 100 mg PO QAM RF: 0 folic acid 800 mcg Tablet 800 mcg PO QAM RF: 0 diclofenac sodium 1 % Gel 2 g TOPICAL QAM RF: 0 omega [id number] oil [Fish Oil] 1,000 mg (120 mg-180 mg) Capsule 1 cap PO BID RF: 0 Discontinued aspirin 81 mg Tablet,Chewable 81 mg PO QAM RF: 0 Discharge Orders: Discharge Order (Routine); Ordered 09/09/19 Ordered By: Fabio Foster Admission Data Admit Date/Time: 09/08/19 13:50 Attending Provider: Grant Stubbs Admit Provider: Grant Stubbs Primary Care Provider: Kenya Marcos Other Interventions: Discharge Summary Assessment (RN) Last Done: 09/09/19 13:35 DC Date/Time DO NOT enter until pt leaves facility: 09/09/19 16:10
== END 2019-09-09 16:10 | disposition home health service (06) | DRG 470 ==
LOC: ASU 08:15 → 3E 13:50